=== PATIENT | female | born 1990 | race Caucasian/White ===

== ENCOUNTER 2017-01-29 18:45 | Emergency (ER) | payer MEDICAID ==
[~2017-01-29] VITALS: Ht 170.2 cm; Wt 66.0 kg
[2017-01-29 18:46] VITALS: BP 133/78; PULSE 98; RESP 16; TEMP 98.5; O2SAT 98
--- NOTE | 2017-01-29 19:06 | PD ---
HPI Chief Complaint: Headache Time Seen by Provider: 19:06 Travel History International Travel<30 days: No Contact w/Intl Traveler<30days: No Traveled to known affect area: No History of Present Illness HPI 26-year-old female with history migraine headaches presents to emergency department for evaluation of a migraine headache persisted since her last 3-4 days. Patient states she has taken Excedrin Migraine without any relief of her symptoms. Denies any fever or chills. No nausea or vomiting. No focal deficits with this. No headache,. Patient does not have a local primary care provider she recently moved from [place]. She also feels like she may be getting a cold. She has no other symptoms reported. Denies chance of . Last menstrual cycle was 2 days ago. PFSH Past Medical History Anemia: Yes Tetanus Vaccination: > 5 Years Influenza Vaccination: No ?: Not Past Surgical History Surgical History: No Previous Surgery Social History Alcohol Use: Yes (occ) Tobacco Use: Yes (3 cig per day) Substance Use: No Allergies-Medications (Allergen,Severity, Reaction): Coded Allergies: Shrimp (Verified Allergy, Severe, Anaphylaxis, 01/29/17) Reported Meds & Prescriptions Reported Meds & Active Scripts Active Fioricet (Idhezmjjrs-Nalqkjcavrwda-Npczyjjs) 50-300-40 Mg Cap 1 Cap PO Q6HR PRN Review of Systems Except as stated in HPI: all other systems reviewed are Neg Physical Exam Narrative GENERAL: Well-nourished, well-developed female patient, ambulatory with a nonantalgic gait no acute distress SKIN: Focused skin assessment warm/dry. HEAD: Normocephalic. Atraumatic EYES: No scleral icterus. No injection or drainage. NECK: Supple, trachea midline. No JVD or lymphadenopathy. CARDIOVASCULAR: Regular rate and rhythm without murmurs, gallops, or rubs. RESPIRATORY: Breath sounds equal bilaterally. No accessory muscle use. GASTROINTESTINAL: Abdomen soft, non-tender, nondistended. MUSCULOSKELETAL: No cyanosis, or edema. BACK: Nontender without obvious deformity. No CVA tenderness. NEUROLOGICAL: Awake and alert. Cranial nerves II through XII intact. Motor and sensory grossly within normal limits. Five out of 5 muscle strength in all muscle groups. Normal speech. Data Data Last Documented VS Vital Signs Date Time Temp Pulse Resp B/P Pulse Ox O2 Delivery O2 Flow Rate FiO2 01/29/17 20:48 98.1 89 18 92/55 98 Room Air Orders Iv Access Insert/Monitor (01/29/17 19:12) Ketorolac Inj (Toradol Inj) (01/29/17 19:15) Diphenhydramine Inj (Benadryl Inj) (01/29/17 19:15) Prochlorperazine Inj (Compazine Inj) (01/29/17 19:15) Sodium Chlor 0.9% 1000 Ml Inj (Ns 1000 M (01/29/17 19:15) MDM Medical Decision Making Medical Screen Exam Complete: Yes Emergency Medical Condition: Yes Medical Record Reviewed: Yes Differential Diagnosis Migraine headache with or without aura versus cluster headache versus tension headache Narrative Course 26 year-old female presents to the emergency department for evaluation persistent migraine. Patient is sitting up, texting when I walk in the room with all the lights on. Neuro exam is nonfocal. Patient is treated with medication for migraine. Upon reassessment, patient is resting on the bed. She has complete resolution of her migraine. She'll be discharged at this time. She is encouraged to seek primary care follow-up if she is going to reside locally. She agrees with this plan of care. Her boyfriend is encouraged to drive her home. He agrees with this plan as well. Diagnosis Primary Impression: Migraine Qualified Code: G43.909 - Migraine without status migrainosus, not intractable , unspecified migraine type Referrals: Neurologist Primary Care Physician Patient Instructions: General Instructions, Migraine Headache (ED) Additional Instructions: Maintain adequate oral hydration Rest Follow up with a primary care provider Seek neurology evaluation if symptoms persist Return to ED with acute worsening of symptoms Med/Other Pt SpecificInfo: Prescription(s) given Scripts Nhiykpzwft-Qipsfneejyttu-Lymjhpge (Fioricet)50-300-40 Mg Cap1 Cap PO Q6HR PRN ( HEADACHE) #12 CAP Ref 0 Prov:Kourtney Camarillo 01/29/17 Disposition: 01 DISCHARGE HOME Condition: Stable Kourtney Camarillo Jan 29, 2017 19:06
[2017-01-29] MEDS ORDERED: diphenhydrAMINE HCL 50 MG/ML VIAL IV PUSH ONE (19:15)
[2017-01-29] MEDS ORDERED: PROCHLORPERAZINE INJ 10 MG/2 ML VIAL IV PUSH ONE (19:15)
[2017-01-29] MEDS ORDERED: KETOROLAC TROMETHAMINE 30 MG/ML (IVP) VIAL IV PUSH ONE (19:15)
[2017-01-29] MEDS ORDERED: SODIUM CHLOR 0.9% 1000 ML INJ 1,000 ML IV ONE (19:15)
[2017-01-29] MEDS ORDERED: BUTA1CAP PO (20:21)
[2017-01-29 20:48] VITALS: BP 92/55; PULSE 89; RESP 18; TEMP 98.1; O2SAT 98
== END 2017-01-29 20:49 | disposition home or self-care (01) ==
LOC: NEPC 18:45
DX: G43.909 Migraine, unspecified, not intractable, without status migrainosus (principal); Z72.0 Tobacco use; Z86.69 Personal history of other diseases of the nervous system and sense organs; Z86.2 Personal history of diseases of the blood and blood-forming organs and certain disorders involving the immune mechanism
CPT/HCPCS: 96374; 96375; 99284; J0780; J1200; J1885; J7030

== ENCOUNTER 2017-08-10 09:33 | Emergency (ER) | payer MEDICAID ==
[~2017-08-10] VITALS: Ht 170.2 cm; Wt 70.0 kg
[~2017-08-10 09:33] MED LIST: BUTA1CAP PO
[2017-08-10 09:34] VITALS: BP 118/58; PULSE 104; RESP 20; TEMP 100.5; O2SAT 98
--- NOTE | 2017-08-10 12:32 | PD ---
HPI Chief Complaint: Cold / Flu Symptoms Time Seen by Provider: 12:32 Travel History International Travel<30 days: No Contact w/Intl Traveler<30days: No Traveled to known affect area: No History of Present Illness HPI 27-year-old female came to the emergency room with history of fever, myalgias, sore throat, headache and dizziness everything hitting at once last night. 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 Her temperature in triage was 100.5. Patient says last night she took NyQuil. She has not been feeling any better and hence came to the emergency room. She is otherwise a healthy person. She is answering questions appropriately. She said there was no chance she could be . [facility] Past Medical History Narrative Medical List of her past medical, surgical, social, family history is reviewed from the nursing note. Anemia: Yes ?: Not LMP: 08/2017 Social History Alcohol Use: Yes (occ) Tobacco Use: Yes (3 cig per day) Substance Use: No Allergies-Medications (Allergen,Severity, Reaction): Coded Allergies: shrimp (Unverified Allergy, Severe, Anaphylaxis, 08/10/17) Comments List of her allergies reviewed from the nursing note. Reported Meds & Prescriptions Reported Meds & Active Scripts Active Amoxicillin 500 Mg Cap 500 Mg PO BID 10 Days Fioricet (Dhhzfxpwxm-Zmpuzxzathbip-Mdebpscg) 50-300-40 Mg Cap 1 Cap PO Q6HR PRN Narrative Medication List of her home medications reviewed from the nursing note. Review of Systems Except as stated in HPI: all other systems reviewed are Neg General / Constitutional: Positive: Fever, Chills HENT: Positive: Sore Throat, Congestion Musculoskeletal: Positive: Myalgias Physical Exam Narrative GENERAL: Awake, alert, moderate distress SKIN: Focused skin assessment warm/dry. HEAD: Atraumatic. Normocephalic. EYES: Pupils equal and round. No scleral icterus. No injection or drainage. ENT: No nasal bleeding or discharge. Mucous membranes pink and moist. Pharynx slightly erythematous with no exudates. NECK: Trachea midline. No JVD. CARDIOVASCULAR: Regular rate and rhythm. No murmur appreciated. RESPIRATORY: No accessory muscle use. Clear to auscultation. Breath sounds equal bilaterally. GASTROINTESTINAL: Abdomen soft, non-tender, nondistended. Hepatic and splenic margins not palpable. MUSCULOSKELETAL: No obvious deformities. No clubbing. No cyanosis. No edema. NEUROLOGICAL: Awake and alert. No obvious cranial nerve deficits. Motor grossly within normal limits. Normal speech. PSYCHIATRIC: Appropriate mood and affect; insight and judgment normal. Data Data Last Documented VS Vital Signs Date Time Temp Pulse Resp B/P (MAP) Pulse Ox O2 Delivery O2 Flow Rate FiO2 08/10/17 13:50 99.0 15 99 08/10/17 09:34 104 Room Air Orders Orders Group A Rapid Strep Screen (08/10/17 12:41) Influenzae A/B Antigen (08/10/17 12:41) Ibuprofen (Motrin) (08/10/17 12:45) Amoxicillin (Trimox) (08/10/17 13:30) Ed Discharge Order (08/10/17 13:27) MDM Medical Decision Making Medical Screen Exam Complete: Yes Emergency Medical Condition: Yes Medical Record Reviewed: Yes Differential Diagnosis Influenza, strep throat, viral illness Narrative Course 12:45 PM rapid strep and influenza has been sent. Patient has been given ibuprofen for fever and pain. 1:22 PM rapid strep is positive. Awaiting for the influenza to be resulted. Patient was given by mouth amoxicillin 500 mg and she'll be discharged home. 1:45 PM Rapid flu was negative. Procedures EKG Prior to Arrival: No Diagnosis Primary Impression: Strep pharyngitis Referrals: Primary Care Physician Additional Instructions: Take the medication as per the prescription direction. Follow-up with your primary care. Take Tylenol/Motrin/ibuprofen for fever and/or pain. Med/Other Pt SpecificInfo: Prescription(s) given Scripts Amoxicillin (Amoxicillin) 500 Mg Cap 500 MG PO BID for Infection for 10 Days, #20 CAP 0 Refills Prov: Zulay Hoang MD 08/10/17 Disposition: 01 DISCHARGE HOME Condition: Stable Zulay Hoang MD Aug 10, 2017 12:32
[2017-08-10] MEDS ORDERED: IBUPROFEN 600 MG TAB PO ONE (12:45)
[2017-08-10] MEDS ORDERED: AMOX500C PO (13:25)
[2017-08-10] MEDS ORDERED: AMOXICILLIN (TRIHYDRATE) 500 MG CAP PO ONE (13:30)
[2017-08-10 13:50] VITALS: TEMP 99
== END 2017-08-10 14:21 | disposition home or self-care (01) ==
LOC: NEPD 09:33
DX: J02.0 Streptococcal pharyngitis (principal); R42 Dizziness and giddiness; R51 Headache; M79.1 Myalgia
CPT/HCPCS: 87804; 87880; 99283